=== PATIENT | female | born 1990 | race African-American/Black ===

== ENCOUNTER 2017-08-03 22:25 | Emergency (ER) | payer SELFPAY | END 2017-08-04 00:50 | disposition left against medical advice (07) | LOC: ERS 22:25 | DX: Z53.21 Procedure and treatment not carried out due to patient leaving prior to being seen by health care provider (principal) ==

== ENCOUNTER 2017-08-03 23:03 | Emergency (ER) | payer SELFPAY | END 2017-08-03 23:42 | disposition home or self-care (01) | LOC: SCSER 23:03 | DX: H69.81 Other specified disorders of Eustachian tube, right ear (principal); J02.9 Acute pharyngitis, unspecified; F17.210 Nicotine dependence, cigarettes, uncomplicated | CPT/HCPCS: 99283 ==

== ENCOUNTER 2017-11-28 11:22 | Emergency (ER) | payer SELFPAY ==
[2017-11-28] MEDS ORDERED: Mag-Al 1200 mg/1200 mg/30 ML UDCUP ONE (12:40)
[2017-11-28] MEDS ORDERED: Lidocaine 1% (PF) 30 ML VIAL ONE (12:40)
[2017-11-28] MEDS ORDERED: Lidocaine Viscous Sol 2% 15 ml UD Cup ONE (12:43)
== END 2017-11-28 12:53 | disposition home or self-care (01) ==
LOC: ERS 11:22
DX: K21.9 Gastro-esophageal reflux disease without esophagitis (principal); J02.9 Acute pharyngitis, unspecified; Z71.6 Tobacco abuse counseling; F17.210 Nicotine dependence, cigarettes, uncomplicated
CPT/HCPCS: 99406; J2001

== ENCOUNTER 2018-04-16 17:37 | Emergency (ER) | payer SELFPAY ==
[2018-04-16] MEDS ORDERED: Acetaminophen 325 MG TAB ONE (18:53)
[2018-04-16 19:10] LABS: #Basophils 0.1 thou/uL (0.0-0.2); #Lymphocytes 2.7 thou/uL (1.20-3.40); #Monocytes 0.5 thou/uL (0.11-0.59); #Neutrophils 5.9 thou/uL (1.40-6.50); %Eosinophils 0.4 % (0.0-10.0); %Monocytes 5.7 % (0.0-10.0); %Neutrophils 63.9 % (42.0-75.0); Hemoglobin 11.7 g/dL (12.0-16.0); Mean Corpuscular HGB CONC 35.1 g/dL (32.0-36.0); Mean Corpuscular Hemoglobin 27.8 pg (27.0-31.0); Mean Corpuscular Volume 79.2 fL (78.0-98.0); Mean Platelet Volume 10.9 fL (7.4-10.4); Platelet Count 170 thou/uL (130-400); RBC Distribution Width 14.5 % (11.5-14.5); White Blood Cell (WBC) Count 9.2 thou/uL (4.8-10.8)
[2018-04-16 19:32] LABS: ALT (SGPT) 12 U/L (8-55); AST (SGOT) 16 U/L (5-34); Albumin 3.9 g/dL (3.5-5.0); Alkaline Phosphatase 61 U/L (40-150); Anion Gap 11 mmol/L (10-20); BUN (Urea Nitrogen) 11 mg/dL (7.0-18.7); Bilirubin, Total 0.4 mg/dL (0.2-1.2); Calc. Creatinine Clearance 0 mL/min (70-130); Calcium 8.8 mg/dL (7.8-10.44); Carbon Dioxide 24 mmol/L (22-29); Chloride 107 mmol/L (98-107); Estimated GFR-MDRD Greater than 90; Globulin 3.5 g/dL (2.4-3.5); Glucose 92 mg/dL (70-105); Protein, Total 7.4 g/dL (6.0-8.3); Sodium 138 mmol/L (136-145)
--- NOTE | 2018-04-16 20:08 | ULT ---
LEFT LOWER EXTREMITY VENOUS DUPLEX EXAM: HISTORY: Left lower extremity pain. TECHNIQUE: Real-time color Doppler evaluation of the left lower extremity was performed from the groin to the nv lf. This includes evaluation of the common femoral, superficial femoral, profunda femoral, saphenous , popliteal, and posterior tibial veins. FINDINGS: This shows a patent deep venous system. There is normal compressibility and augmentation. IMPRESSION: No evidence of deep venous thrombosis of the left lower extremity. POS: [place]
--- NOTE | 2018-04-21 15:28 | EKG ---
Test Reason : Blood Pressure : / mmHG Vent. Rate : 059 BPM Atrial Rate : 059 BPM P-R Int : 172 ms QRS Dur : 078 ms QT Int : 412 ms P-R-T Axes : 051 004 019 degrees QTc Int : 407 ms Sinus bradycardia Confirmed by ARA CHAVARRIA M.D. ([id number]), commissioning editor FLORES ORTEGA ([id number]) on 04/21/2018 3:27:57 PM Referred By: Confirmed By:ARA CHAVARRIA M.D.
== END 2018-04-16 20:42 | disposition home or self-care (01) ==
LOC: ERS 17:37
DX: M79.652 Pain in left thigh (principal); D64.9 Anemia, unspecified; F17.210 Nicotine dependence, cigarettes, uncomplicated
CPT/HCPCS: 36415; 80053; 82550; 85025; 85379; 93005

== ENCOUNTER 2018-06-13 23:38 | Emergency (ER) | payer SELFPAY | END 2018-06-14 00:35 | disposition home or self-care (01) | LOC: ERS 23:38 | DX: B86 Scabies (principal); F17.210 Nicotine dependence, cigarettes, uncomplicated | CPT/HCPCS: 99282 ==

== ENCOUNTER 2019-01-30 12:26 | Emergency (ER) | payer SELFPAY | END 2019-01-30 14:00 | disposition home or self-care (01) | LOC: ERS 12:26 | DX: N61.0 Mastitis without abscess (principal); I10 Essential (primary) hypertension; F41.9 Anxiety disorder, unspecified; F17.210 Nicotine dependence, cigarettes, uncomplicated; Z79.899 Other long term (current) drug therapy | CPT/HCPCS: 99283 ==

== ENCOUNTER 2019-05-20 01:19 | Emergency (ER) | payer SELFPAY ==
[2019-05-20] MEDS ORDERED: Ondansetron ODT 4 MG TAB ONE (01:41)
[2019-05-20] MEDS ORDERED: Lidocaine Viscous Sol 2% 15 ml UD Cup ONE (01:41)
[2019-05-20] MEDS ORDERED: Mag-Al 1200 mg/1200 mg/30 ML UDCUP ONE (01:41)
[2019-05-20 02:01] LABS: Bacteria/HPF 1+ HPF (None Seen); Bilirubin Negative (Negative); Blood, Urine Negative (Negative); Clarity Clear (Clear); Glucose, Urine (Dipstick) Normal (Negative); Leukocyte 500 Leu/uL (Negative); Nitrite Negative (Negative); Protein, Urine (Dipstick) Negative (Neg-Trace); RBC/HPF None Seen HPF (0-3); Urobilinogen Normal mg/dL (Less than 2); WBC/HPF 0-3 HPF (0-3)
[2019-05-20 02:02] LABS: Pregnancy Test - Urine (BHCG) Negative (Negative); Pregu Control Background? CLEAR/WHITE (CLR/WHITE); Pregu Control Bar Appear? YES (CONTROL BAR); Specific Gravity 1.007 (1.002-1.036)
== END 2019-05-20 02:50 | disposition home or self-care (01) ==
LOC: ERS 01:19
DX: K21.9 Gastro-esophageal reflux disease without esophagitis (principal); F41.9 Anxiety disorder, unspecified; F17.210 Nicotine dependence, cigarettes, uncomplicated; I10 Essential (primary) hypertension; Z79.899 Other long term (current) drug therapy
CPT/HCPCS: 81003; 81015; 81025; 99284; Q0162

== ENCOUNTER 2019-06-15 21:09 | Emergency (ER) | payer SELFPAY ==
[2019-06-15 21:41] LABS: Bacteria/HPF None Seen HPF (None Seen); Bilirubin Negative (Negative); Blood, Urine Negative (Negative); Clarity Clear (Clear); Glucose, Urine (Dipstick) Normal (Negative); Leukocyte 75 Leu/uL (Negative); Nitrite Negative (Negative); Protein, Urine (Dipstick) Negative (Neg-Trace); RBC/HPF 0-3 HPF (0-3); Squamous Epithelial 0-3 HPF (0-3); Urobilinogen Normal mg/dL (Less than 2); WBC/HPF 0-3 HPF (0-3)
[2019-06-15 21:49] LABS: #Basophils 0.1 thou/uL (0.0-0.2); #Lymphocytes 2.6 thou/uL (1.20-3.40); #Monocytes 0.4 thou/uL (0.11-0.59); #Neutrophils 6.2 thou/uL (1.40-6.50); %Basophils 1.3 % (0.0-1.0); %Eosinophils 0.1 % (0.0-10.0); %Monocytes 4.7 % (0.0-10.0); %Neutrophils 65.8 % (42.0-75.0); Hemoglobin 11.6 g/dL (12.0-16.0); Mean Corpuscular HGB CONC 35.4 g/dL (32.0-36.0); Mean Corpuscular Hemoglobin 28.5 pg (27.0-31.0); Mean Corpuscular Volume 80.4 fL (78.0-98.0); Mean Platelet Volume 10.8 fL (7.4-10.4); Platelet Count 189 thou/uL (130-400); RBC Distribution Width 14.9 % (11.5-14.5); Red Blood Cell (RBC) Count 4.09 mill/uL (4.20-5.40); White Blood Cell (WBC) Count 9.4 thou/uL (4.8-10.8)
[2019-06-15] MEDS ORDERED: Acetaminophen 325 MG TAB ONE (22:18)
--- NOTE | 2019-06-15 23:27 | ULT ---
Obstetric sonogram transabdominal imaging with duplex evaluation HISTORY: Early . Pain. FINDINGS: Urinary bladder is incompletely distended. Uterus has a heterogeneous echotexture and is 11 .1 cm. Gestational sac within the endometrial cavity contains a yolk sac and pole. Heart motion at 116 bpm. Measurements correlate with 6 weeks 2 days gestational age. Estimated date of delivery 02/06/2020. No evidence of subchorionic hemorrhage. Minimal free fluid within the pelvis. Each ovary contains fol licles and demonstrates good color and spectral Doppler flow. IMPRESSION: Single early intrauterine gestation estimated gestational age 6 weeks 2 days. No evidence of complication.
== END 2019-06-15 23:36 | disposition home or self-care (01) ==
LOC: ERS 21:09
DX: O99.89 Other specified diseases and conditions complicating pregnancy, childbirth and the puerperium (principal); R10.30 Lower abdominal pain, unspecified; R19.7 Diarrhea, unspecified; O21.9 Vomiting of pregnancy, unspecified; O10.911 Unspecified pre-existing hypertension complicating pregnancy, first trimester; O99.611 Diseases of the digestive system complicating pregnancy, first trimester; K21.9 Gastro-esophageal reflux disease without esophagitis; O99.341 Other mental disorders complicating pregnancy, first trimester; F41.9 Anxiety disorder, unspecified; O99.331 Smoking (tobacco) complicating pregnancy, first trimester; F17.210 Nicotine dependence, cigarettes, uncomplicated; Z79.899 Other long term (current) drug therapy; Z3A.01 Less than 8 weeks gestation of pregnancy
CPT/HCPCS: 36415; 76856; 81003; 81015; 84702; 85025; 86900; 86901

== ENCOUNTER 2019-06-26 12:20 | Emergency (ER) | payer BC, SELFPAY ==
[2019-06-26 12:54] LABS: BHCG - Serum POSITIVE (NEGATIVE); Pregs Control Background? CLEAR/WHITE (CLR/WHITE); Pregs Control Bar Appear? YES (CONTROL BAR)
[2019-06-26 12:56] LABS: #Basophils 0.1 thou/uL (0.0-0.2); #Lymphocytes 2.1 thou/uL (1.20-3.40); #Monocytes 0.5 thou/uL (0.11-0.59); #Neutrophils 4.7 thou/uL (1.40-6.50); %Basophils 1.1 % (0.0-1.0); %Eosinophils 0.3 % (0.0-10.0); %Lymphocytes 28.4 % (21.0-51.0); %Monocytes 6.6 % (0.0-10.0); %Neutrophils 63.7 % (42.0-75.0); Hemoglobin 11.4 g/dL (12.0-16.0); Mean Corpuscular HGB CONC 35.9 g/dL (32.0-36.0); Mean Corpuscular Hemoglobin 29.1 pg (27.0-31.0); Mean Corpuscular Volume 81.2 fL (78.0-98.0); Mean Platelet Volume 10.1 fL (7.4-10.4); Platelet Count 197 thou/uL (130-400); RBC Distribution Width 15.1 % (11.5-14.5); Red Blood Cell (RBC) Count 3.91 mill/uL (4.20-5.40); White Blood Cell (WBC) Count 7.4 thou/uL (4.8-10.8)
[2019-06-26 13:17] LABS: ALT (SGPT) 14 U/L (8-55); AST (SGOT) 13 U/L (5-34); Albumin 3.7 g/dL (3.5-5.0); Alkaline Phosphatase 56 U/L (40-110); Anion Gap 11 mmol/L (10-20); BUN (Urea Nitrogen) 7 mg/dL (7.0-18.7); Bilirubin, Total 0.3 mg/dL (0.2-1.2); Calc. Creatinine Clearance 0 mL/min (70-130); Calcium 8.8 mg/dL (7.8-10.44); Carbon Dioxide 23 mmol/L (22-29); Chloride 104 mmol/L (98-107); Estimated GFR-MDRD Greater than 90; Globulin 3.3 g/dL (2.4-3.5); Glucose 104 mg/dL (70-105); Lipase 12 U/L (8-78); Potassium 3.5 mmol/L (3.5-5.1); Sodium 134 mmol/L (136-145)
--- NOTE | 2019-06-26 13:32 | ULT ---
ULTRASOUND PELVIC ULTRASOUND TRANSVAGINAL DOPPLER DUPLEX: DATE: 06/26/2019 HISTORY: 29-year-old female in first trimester with lower abdominal, pelvic pain TECHNIQUE: Transabdominal transducer and endovaginal transducer used to visualize intrapelvic contents with leung scale, color-flow, and spectral analysis. FINDINGS: Intrauterine gestational sac now has slightly irregular, mildly undulating margins. Its volume is now slightly large. Thin crescentic hypoechoic regions are questionable for minimal subchorionic hemorrhage. Yolk sac present. Embryonic pole crown-rump length 1.4 cm: 7 weeks 4 days. heart rate: 139 bpm. No free fluid in the cul-de-sac. Bilateral ovaries are normal in size and demonstrate blood flow. Questionable 2.5 cm hemorrhagic right corpus luteal cyst. IMPRESSION: 1) live first trimester intrauterine gestation estimated to be approximately 7 weeks 4 days gestation al age. 2) mild abnormality of the gestational sac. Possibility of threatened . Follow-up recommended .
== END 2019-06-26 13:40 | disposition home or self-care (01) ==
LOC: ERS 12:20
DX: O34.61 Maternal care for abnormality of vagina, first trimester (principal); N89.8 Other specified noninflammatory disorders of vagina; O99.89 Other specified diseases and conditions complicating pregnancy, childbirth and the puerperium; R10.30 Lower abdominal pain, unspecified; O10.911 Unspecified pre-existing hypertension complicating pregnancy, first trimester; O99.611 Diseases of the digestive system complicating pregnancy, first trimester; K21.9 Gastro-esophageal reflux disease without esophagitis; O99.341 Other mental disorders complicating pregnancy, first trimester; F41.9 Anxiety disorder, unspecified; O99.331 Smoking (tobacco) complicating pregnancy, first trimester; F17.210 Nicotine dependence, cigarettes, uncomplicated; Z3A.01 Less than 8 weeks gestation of pregnancy
CPT/HCPCS: 36415; 76856; 80053; 83690; 84702; 84703; 85025

== ENCOUNTER 2019-08-04 12:21 | Emergency (ER) | payer BC, OTHER | END 2019-08-04 13:11 | disposition home or self-care (01) | LOC: ERS 12:21 | DX: J30.2 Other seasonal allergic rhinitis (principal); M94.0 Chondrocostal junction syndrome [Tietze]; I10 Essential (primary) hypertension; K21.9 Gastro-esophageal reflux disease without esophagitis; F41.9 Anxiety disorder, unspecified | CPT/HCPCS: 99283 ==

== ENCOUNTER 2019-10-02 08:27 | Outpatient (CLI) | payer BC, OTHER ==
--- NOTE | 2019-10-02 11:15 | ULT ---
COMPLETE OB ULTRASOUND GREATER THAN 14 WEEKS: HISTORY: Anatomy. FINDINGS: Single viable intrauterine fetus is noted in breech presentation. The placenta is anterior and ja l. heart rate 146 b.p.m. Amniotic fluid within normal limits. Cervical length somewhat less than optimally seen but within normal limits. ANATOMY: Visualized brain, 4-chamber heart, 3-vessel cord, stomach, bladder, kidneys, and extremity aury ons were unremarkable. biometry: BPD 4.3 cm-19 weeks, 1 day Head circumference 18.1 cm-20 weeks, 4 days Abdominal circumference 16.4 cm-21 weeks, 3 days Femur length 3.3 cm-20 weeks 3 days IMPRESSION: Single viable intrauterine fetus 20 weeks 3 days, estimated date of delivery 02/04/2020. Estimated f etal weight 378 gm. POS: [facility]
== END 2019-10-02 08:28 | disposition home or self-care (01) ==
LOC: BICULT 08:27
PROVIDERS: ATTEND Family Medicine
DX: O09.892 Supervision of other high risk pregnancies, second trimester (principal); Z3A.20 20 weeks gestation of pregnancy
CPT/HCPCS: 76805; 87635; U0003

== ENCOUNTER 2019-10-10 11:39 | Emergency (ER) | payer BC, OTHER ==
[2019-10-10] MEDS ORDERED: Acetaminophen 500 MG TAB ONE (12:51)
[2019-10-10 14:20] LABS: Bacteria/HPF Rare-Few HPF (None Seen); Bilirubin Negative (Negative); Blood, Urine Negative (Negative); Clarity Clear (Clear); Glucose, Urine (Dipstick) Normal (Negative); Leukocyte 250 Leu/uL (Negative); Nitrite Negative (Negative); Protein, Urine (Dipstick) Negative (Neg-Trace); RBC/HPF 0-3 HPF (0-3); Urobilinogen Normal mg/dL (Less than 2)
[2019-10-11 11:57] LABS: SARS-CoV-2 MS2 Positive; SARS-CoV-2 N Gene Negative; SARS-CoV-2 S Gene Negative; SARS-CoV-2 orf1ab Negative
--- NOTE | 2019-10-13 15:31 | EKG ---
Test Reason : CHEST PAIN Blood Pressure : / mmHG Vent. Rate : 070 BPM Atrial Rate : 070 BPM P-R Int : 174 ms QRS Dur : 084 ms QT Int : 408 ms P-R-T Axes : 033 001 011 degrees QTc Int : 440 ms Normal sinus rhythm Cannot rule out Anterior infarct , age undetermined Abnormal ECG Confirmed by HARRISON HARRY, TY ([id number]), video effects editor ANEESH JOHNSON ([id number]) on 10/13/2019 3:30:54 PM Referred By: [facility] Confirmed By:TY TERRY MD
== END 2019-10-10 14:35 | disposition home or self-care (01) ==
LOC: ERS 11:39
DX: O23.42 Unspecified infection of urinary tract in pregnancy, second trimester (principal); O99.89 Other specified diseases and conditions complicating pregnancy, childbirth and the puerperium; M79.10 Myalgia, unspecified site; O10.912 Unspecified pre-existing hypertension complicating pregnancy, second trimester; O99.613 Diseases of the digestive system complicating pregnancy, third trimester; K21.9 Gastro-esophageal reflux disease without esophagitis; O99.342 Other mental disorders complicating pregnancy, second trimester; F41.9 Anxiety disorder, unspecified; Z3A.23 23 weeks gestation of pregnancy; Z79.899 Other long term (current) drug therapy
CPT/HCPCS: 81003; 81015; 87086; 87635; 93005; 94760; U0003

== ENCOUNTER 2020-01-13 12:35 | Day surgery (SDC) | payer BC, OTHER ==
[2020-01-13 13:22] VITALS: BP 119/83; TEMP 98; BMI 33.2
[2020-01-13] MEDS ORDERED: hydrALAZINE 20 MG/ML VIAL SLOW IVP PRN (13:50)
--- NOTE | 2020-01-13 13:54 | PDOC.LDHP ---
Labor and Delivery H&P Chief complaint: other (elevated blood pressure) HPI: 29 year-old female , EGA 37 0/6 weeks with gestational hypertension presents to L&D with complaints of high blood pressure that began last night. She started feeling "spacy" last night and could tell that her blood pressure was elevated. She continued to feel that way this morning, so she checked her blood pressure and noted a BP of 144/85. She checked it again an hour later and it went down to 138/94. However, an hour after that, it was elevated again, so her OB Dr. Denis told her to come get evaluated in the hospital. She has also had a mild headache with this, but believes this may be due to inadequate fluid intake. She ran out of her Procardia 3 days ago. She denies any chest pain, LE swelling, vision changes, vaginal bleeding, abnormal discharge, urinary sx's, or signs of membrane rupture. + FM. Current gestational age (weeks): 37 (37.0) Dating criteria: last menstrual period Grav: 3 Para: 2 (2001) OB History Details: #1: IOL w/ @ 35 WGA for pre-e #2: IOL w/ @ 36 WGA for pre-e Current complications: gestational hypertension, other (anemia) Abnormal US findings: No Current medications: pre- vitamins, iron, other (nifedipine PO QD) Previous surgical history: appendectomy, none (tonsillectomy & adenoidectomy) Allergies/Adverse Reactions: Allergies Allergy/AdvReac Type Severity Reaction Status Date / Time No Known Allergies Allergy Verified 01/13/20 13:09 Social history: none - Physical Exam Vital signs reviewed and normal: yes General: NAD Lungs: nonlabored breathing Abdomen: gravid Extremeties: no edema FHT: category 1, variability present [place] contractions every: none noted - Plan -: 29Yo @ 37 WGA presenting for evaluation for an elevated BP at home. Elevated BP in setting gHTN, r/o pre-e: - BPs all WNLs since arrival to L&D. No contractions on monitor. FHTs reassuring w/ variability & accels noted. Will get pre-e labs & give PO tylenol for REAL. Will encourage PO hydration. Addendum - Attending - Attending Attestation Date/Time: 01/13/20 [id number] I personally evaluated the patient and discussed the management with Dr. Blake. I agree with the History, Examination, Assessment and Plan documented above.
[2020-01-13] MEDS ORDERED: Acetaminophen 500 MG TAB PO SCH (14:00)
[2020-01-13 15:35] LABS: #Basophils 0.1 thou/uL (0.0-0.2); #Lymphocytes 1.9 thou/uL (1.20-3.40); #Monocytes 0.5 thou/uL (0.11-0.59); #Neutrophils 4.5 thou/uL (1.40-6.50); %Basophils 1.2 % (0.0-1.0); %Eosinophils 0.4 % (0.0-10.0); %Lymphocytes 26.6 % (21.0-51.0); %Monocytes 6.7 % (0.0-10.0); %Neutrophils 65.2 % (42.0-75.0); Hemoglobin 11.5 g/dL (12.0-16.0); Mean Corpuscular HGB CONC 34.5 g/dL (32.0-36.0); Mean Corpuscular Hemoglobin 28.6 pg (27.0-31.0); Mean Corpuscular Volume 83.1 fL (78.0-98.0); Platelet Count 122 thou/uL (130-400); RBC Distribution Width 15.2 % (11.5-14.5); Red Blood Cell (RBC) Count 4.02 mill/uL (4.20-5.40)
[2020-01-13 15:46] LABS: Anisocytosis SLIGHT = 6-15 cells (100X) (0-5/hpf); Large Platelets SLIGHT; MDiff Complete? YES; Platelet Morphology Comment Appears Decreased
[2020-01-13 15:47] LABS: ALT (SGPT) 9 U/L (8-55); AST (SGOT) 11 U/L (5-34); Albumin 2.9 g/dL (3.5-5.0); Alkaline Phosphatase 107 U/L (40-110); Anion Gap 14 mmol/L (10-20); BUN (Urea Nitrogen) 5 mg/dL (7.0-18.7); Bilirubin, Total 0.3 mg/dL (0.2-1.2); Calc. Creatinine Clearance 202 mL/min (70-130); Calcium 8.1 mg/dL (7.8-10.44); Carbon Dioxide 20 mmol/L (22-29); Chloride 105 mmol/L (98-107); Estimated GFR-MDRD Greater than 90; Globulin 3.3 g/dL (2.4-3.5); Glucose 76 mg/dL (70-105); Potassium 3.5 mmol/L (3.5-5.1); Protein, Total 6.2 g/dL (6.0-8.3); Sodium 135 mmol/L (136-145)
--- NOTE | 2020-01-13 16:11 | PDOC.BPN ---
<Carina Blake - Last Filed: 01/13/20 16:12> - Brief Progress Note Encounter Date: 01/13/20 Encounter Time: 16:00 29YO @ 37 WGA presenting for evaluation for an elevated BP at home. Elevated BP in setting gHTN, r/o pre-e: - BPs all WNLs since arrival to L&D. No contractions on monitor. FHTs reassuring w/ variability & accels noted. Pre-e labs WNLs w/ Plts 122, NL LFTs & Urine protein creatinine ratio of 0.115. No pre-e symptoms. Dispo: Will d/c home & send in refills of home BP meds. <Francisco Esparza - Last Filed: 01/13/20 17:36> Addendum - Attending - Attending Attestation Date/Time: 01/13/20 [id number] I personally evaluated the patient and discussed the management with Dr. Blake. I agree with the History, Examination, Assessment and Plan documented above.
== END 2020-01-13 15:25 | disposition home or self-care (01) ==
LOC: L&D/OP 12:35
PROVIDERS: ATTEND Family Medicine
DX: O13.3 Gestational [pregnancy-induced] hypertension without significant proteinuria, third trimester (principal); O99.013 Anemia complicating pregnancy, third trimester; D64.9 Anemia, unspecified; Z3A.37 37 weeks gestation of pregnancy; Z79.899 Other long term (current) drug therapy
CPT/HCPCS: 36415; 80053; 82570; 84156; 85025; 99283

== ENCOUNTER 2020-01-25 08:03 | Outpatient (CLI) | payer BC, OTHER ==
[2020-01-25 19:47] LABS: SARS-CoV-2 MS2 Positive; SARS-CoV-2 N Gene Negative; SARS-CoV-2 S Gene Negative; SARS-CoV-2 by NAA Not Detected (NotDetected); SARS-CoV-2 orf1ab Negative
== END 2020-01-25 08:04 | disposition home or self-care (01) ==
LOC: LABSCS 08:03
PROVIDERS: ATTEND Family Medicine
DX: Z20.828 Contact with and (suspected) exposure to other viral communicable diseases (principal)
CPT/HCPCS: 87635; U0003

== ENCOUNTER 2020-01-28 19:15 | Inpatient (IN) | payer BC, OTHER ==
[2020-01-28 20:18] VITALS: BMI 33.2
[2020-01-28] MEDS: Lactated Ringer's 1,000 ML IV SCH (20:48)
[2020-01-28] MEDS ORDERED: Butorphanol Tartrate 1 MG/ML VIAL SLOW IVP PRN (21:40)
[2020-01-28] MEDS ORDERED: hydrALAZINE 20 MG/ML VIAL SLOW IVP PRN (21:40)
[2020-01-28] MEDS ORDERED: Carboprost 250 MCG/ML AMP IM PRN (21:40)
[2020-01-28] MEDS ORDERED: Methylergonovine 0.2 MG/ML VIAL IM PRN (21:40)
[2020-01-28] MEDS ORDERED: Lidocaine 1% (PF) 30 ML VIAL SC PRN (21:40)
[2020-01-28] MEDS ORDERED: Promethazine HCl 25 MG/ML VIAL IM PRN (21:40)
[2020-01-28] MEDS ORDERED: Misoprostol 200 MCG TAB PR PRN (21:40)
[2020-01-28] MEDS ORDERED: Ibuprofen 800 MG TAB PO PRN (21:40)
[2020-01-28] MEDS ORDERED: Ondansetron PF 4 MG/2 ML Vial IVP PRN (21:40)
[2020-01-28] MEDS ORDERED: HYDROcodone/Acetaminophen 5/325 mg Tablet PO PRN (21:40)
[2020-01-28] MEDS ORDERED: NS / Oxytocin 40 units/1000ml 1,000 ML IV PRN (21:40)
[2020-01-28] MEDS ORDERED: Diphenoxylate HCl/Atropine Tablet PO PRN (21:40)
[2020-01-28] MEDS ORDERED: NS w/ Oxytocin 10 units 500 ML IV SCH ×2 (21:45)
[2020-01-28] MEDS: Misoprostol 100 MCG TAB PO SCH (21:53)
[2020-01-28] MEDS ORDERED: Penicillin G Potassium 5 MILL.UNITS in Sodium Chloride 0.9% 100 ML IVPB SCH (22:00)
[2020-01-28 22:13] LABS: Hemoglobin 12.3 g/dL (12.0-16.0); Mean Corpuscular HGB CONC 34.5 g/dL (32.0-36.0); Mean Corpuscular Hemoglobin 28.1 pg (27.0-31.0); Mean Corpuscular Volume 81.3 fL (78.0-98.0); Mean Platelet Volume 11.5 fL (7.4-10.4); Platelet Count 141 thou/uL (130-400); RBC Distribution Width 15.1 % (11.5-14.5); Red Blood Cell (RBC) Count 4.38 mill/uL (4.20-5.40)
[2020-01-28 22:46] LABS: HBSAg Index 0.14 S/CO (0-0.99); Hep B Surf Ag Non-Reactive S/CO (NonReactive); Syphilis Antibody Nonreactive (Nonreactive); Syphilis Antibody Index 0.05 S/CO (<1.00 Non-Reactive)
[2020-01-29] MEDS ORDERED: Penicillin G 2.5 MILL.units 2.5 MILL.UNITS in Premix Bag 1 BAG IVPB SCH (02:00)
[2020-01-29] MEDS: Misoprostol 100 MCG TAB PO SCH (03:46)
[2020-01-29] MEDS: Lactated Ringer's 1,000 ML IV SCH ×2 (05:04→10:30)
[2020-01-29] MEDS ORDERED: Fentanyl 4 mcg/Bup 0.1% Cadd 100 ML ONE (08:17)
[2020-01-29] MEDS ORDERED: Bupivacaine 0.25% HCL 30 ML VIAL ONE (08:37)
[2020-01-29] MEDS ORDERED: Lactated Ringer's 500 ML IV PRN ×2 (09:56→09:57)
[2020-01-29] MEDS ORDERED: Ondansetron PF 4 MG/2 ML Vial IVP PRN ×3 (09:56→15:24)
[2020-01-29] MEDS ORDERED: Acetaminophen 325 MG TAB PO PRN ×2 (09:56→09:57)
[2020-01-29] MEDS ORDERED: EPHEDRINE 25 MG/5 ML SYRINGE SLOW IVP PRN ×2 (09:56→09:57)
[2020-01-29] MEDS ORDERED: Naloxone HCl 0.4 mg/ml Vial IVP PRN ×4 (09:56→09:57)
[2020-01-29] MEDS ORDERED: Promethazine HCl 25 MG/ML VIAL IM PRN ×2 (09:56→09:57)
[2020-01-29] MEDS ORDERED: diphenhydrAMINE 50 MG/ML VIAL IVP PRN ×2 (09:56→09:57)
[2020-01-29] MEDS ORDERED: Fentanyl 4 mcg/Bupivacaine 0.1% Cassette 100 ML EPIDURAL SCH ×2 (10:00)
[2020-01-29] MEDS ORDERED: Communication Order-Pharmacy FS SCH ×2 (10:00)
[2020-01-29] MEDS ORDERED: Milk Of Magnesia 30 ML UDCUP PO PRN (15:24)
[2020-01-29] MEDS ORDERED: hydrALAZINE 20 MG/ML VIAL SLOW IVP PRN (15:24)
[2020-01-29] MEDS ORDERED: diphenhydrAMINE 25 MG CAP PO PRN (15:24)
[2020-01-29] MEDS ORDERED: Bisacodyl 10 MG SUPP PR PRN (15:24)
[2020-01-29] MEDS ORDERED: NS / Oxytocin 40 units/1000ml 1,000 ML IV SCH (15:24)
[2020-01-29] MEDS: Ferrous Sulfate 325 MG TAB PO SCH (17:18)
[2020-01-29] MEDS: HYDROcodone/Acetaminophen 5/325 mg Tablet PO PRN (17:19)
[2020-01-29] MEDS: Ibuprofen 800 MG TAB PO SCH (21:31)
[2020-01-29] MEDS: Docusate Calcium (SURFAK) 240 MG CAP PO SCH (21:31)
[2020-01-30] MEDS: Ibuprofen 800 MG TAB PO SCH ×3 (05:51→21:59)
[2020-01-30] MEDS: Ferrous Sulfate 325 MG TAB PO SCH ×2 (07:32→16:09)
[2020-01-30] MEDS: Misoprostol 100 MCG TAB PO SCH (07:33)
[2020-01-30] MEDS: Lactated Ringer's 1,000 ML IV SCH (07:36)
[2020-01-30] MEDS: Docusate Calcium (SURFAK) 240 MG CAP PO SCH ×2 (08:13→21:59)
[2020-01-30] MEDS: Prenatal Vitamin 1 TAB PO SCH (08:13)
[2020-01-30] MEDS: HYDROcodone/Acetaminophen 5/325 mg Tablet PO PRN ×3 (08:13→17:47)
[2020-01-30] MEDS ORDERED: Adacel (T-DAP) 0.5 ML SYRINGE IM ONE (09:00)
[2020-01-30] MEDS ORDERED: cloNIDine 0.1 MG TAB PO PRN (16:10)
[2020-01-31] MEDS: Ibuprofen 800 MG TAB PO SCH ×2 (05:18→13:22)
[2020-01-31] MEDS: HYDROcodone/Acetaminophen 5/325 mg Tablet PO PRN ×2 (07:45→13:22)
[2020-01-31] MEDS: Ferrous Sulfate 325 MG TAB PO SCH (08:04)
[2020-01-31] MEDS ORDERED: NIFEdipine XL 30 MG TAB PO SCH (09:00)
[2020-01-31] MEDS: Prenatal Vitamin 1 TAB PO SCH (09:18)
[2020-01-31] MEDS: Docusate Calcium (SURFAK) 240 MG CAP PO SCH (09:18)
[2020-01-31 12:24] VITALS: TEMP 98.5
[2020-01-31 13:34] VITALS: BP 120/73
== END 2020-01-31 14:45 | disposition home or self-care (01) | DRG 807 ==
LOC: L&D 19:39 → 3SW 01-29 15:28
PROVIDERS: ADMIT Family Medicine; ATTEND Family Medicine
PROC: 10E0XZZ Delivery of Products of Conception, External Approach (ICD-10-PCS; principal; 2020-01-29)
PROC: 3E033VJ Introduction of Other Hormone into Peripheral Vein, Percutaneous Approach (ICD-10-PCS; 2020-01-29)
PROC: 3E0P7VZ Introduction of Hormone into Female Reproductive, Via Natural or Artificial Opening (ICD-10-PCS; 2020-01-29)
PROC: 10907ZC Drainage of Amniotic Fluid, Therapeutic from Products of Conception, Via Natural or Artificial Opening (ICD-10-PCS; 2020-01-29)
DX: O10.02 Pre-existing essential hypertension complicating childbirth (principal); Z37.0 Single live birth; Z3A.39 39 weeks gestation of pregnancy; O69.81X0 Labor and delivery complicated by cord around neck, without compression, not applicable or unspecified; O76 Abnormality in fetal heart rate and rhythm complicating labor and delivery
CPT/HCPCS: 51702; 85027; 86780; 86850; 86900; 86901; 87340; 87635; J2590; S0020; U0003

== ENCOUNTER 2020-02-18 11:26 | Emergency (ER) | payer BC, OTHER ==
[~2020-02-18 11:26] MED LIST: Iopamidol-370 76% 500 ML 1 ML ONE
--- NOTE | 2020-02-18 12:00 | RAD ---
XR Chest 1 View Portable HISTORY: Chest pain COMPARISON: 02/04/2014 FINDINGS: The heart size is normal. The lungs are well expanded without focal areas of consolidation, pneumothorax or pleural effusions. IMPRESSION: No radiographic evidence of acute cardiopulmonary process.
[2020-02-18 12:54] LABS: #Basophils 0.1 thou/uL (0.0-0.2); #Monocytes 0.3 thou/uL (0.11-0.59); #Neutrophils 2.3 thou/uL (1.40-6.50); %Basophils 1.7 % (0.0-1.0); %Lymphocytes 41.8 % (21.0-51.0); %Monocytes 5.5 % (0.0-10.0); %Neutrophils 50.1 % (42.0-75.0); Hemoglobin 12.8 g/dL (12.0-16.0); Mean Corpuscular HGB CONC 33.8 g/dL (32.0-36.0); Mean Corpuscular Hemoglobin 28.1 pg (27.0-31.0); Mean Corpuscular Volume 83.1 fL (78.0-98.0); Mean Platelet Volume 11.6 fL (7.4-10.4); Platelet Count 215 thou/uL (130-400); Red Blood Cell (RBC) Count 4.54 mill/uL (4.20-5.40); White Blood Cell (WBC) Count 4.7 thou/uL (4.8-10.8)
[2020-02-18 13:18] LABS: BHCG - Serum Negative (NEGATIVE); Pregs Control Background? CLEAR/WHITE (CLR/WHITE); Pregs Control Bar Appear? YES (CONTROL BAR)
[2020-02-18 13:20] LABS: ALT (SGPT) 39 U/L (8-55); AST (SGOT) 27 U/L (5-34); Albumin 3.7 g/dL (3.5-5.0); Alkaline Phosphatase 81 U/L (40-110); Anion Gap 11 mmol/L (10-20); BUN (Urea Nitrogen) 8 mg/dL (7.0-18.7); Bilirubin, Total 0.3 mg/dL (0.2-1.2); CK (CPK) 44 U/L (29-168); Calc. Creatinine Clearance 0 mL/min (70-130); Calcium 8.6 mg/dL (7.8-10.44); Carbon Dioxide 28 mmol/L (22-29); Chloride 105 mmol/L (98-107); Estimated GFR-MDRD Greater than 90; Glucose 96 mg/dL (70-105); Lipase 15 U/L (8-78); Potassium 3.7 mmol/L (3.5-5.1); Protein, Total 6.7 g/dL (6.0-8.3); Sodium 140 mmol/L (136-145)
--- NOTE | 2020-02-18 13:42 | CT ---
CT PULMONARY ANGIOGRAM WITH IV CONTRAST AND 3-D POSTPROCESSING: HISTORY:Chest pain FINDINGS: There is good contrast opacification of the pulmonary arterial vasculature without filling defects to suggest pulmonary embolism. The thoracic aorta is well opacified without aneurysm or dissection. No pleural or pericardial effusions are seen. No pneumothoraces, focal areas of consolidation or lung nodules are noted. The bony structures are unremarkable. Upper abdominal tomograms demonstrate no significant abnormalities. IMPRESSION: No CT evidence of pulmonary embolism.
== END 2020-02-18 14:46 | disposition home or self-care (01) ==
LOC: ERS 11:26
DX: N61.0 Mastitis without abscess (principal); R07.89 Other chest pain; I10 Essential (primary) hypertension; K21.9 Gastro-esophageal reflux disease without esophagitis; F41.9 Anxiety disorder, unspecified; Z79.899 Other long term (current) drug therapy
CPT/HCPCS: 36415; 71045; 71275; 80053; 82550; 83690; 84484; 84703; 85025; 93005; Q9967

== ENCOUNTER 2020-06-03 01:48 | Emergency (ER) | payer BC, OTHER ==
[2020-06-03] MEDS ORDERED: Mag-Al 1200 mg/1200 mg/30 ML UDCUP ONE (02:16)
[2020-06-03] MEDS ORDERED: Lidocaine Viscous Sol 2% 15 ml UD Cup ONE (02:16)
[2020-06-03] MEDS ORDERED: Ondansetron ODT 4 MG TAB ONE (02:19)
--- NOTE | 2020-06-03 07:52 | RAD ---
EXAM: Single view of the chest HISTORY: Chest pain COMPARISON: 02/18/2020 FINDINGS: Single view of the chest shows a normal sized cardiomediastinal silhouette. There is no jose dence of consolidation, mass, or pleural effusion. No acute osseous abnormality. IMPRESSION: No evidence of acute cardiopulmonary disease
== END 2020-06-03 03:10 | disposition home or self-care (01) ==
LOC: ERS 01:48
DX: K21.00 Gastro-esophageal reflux disease with esophagitis, without bleeding (principal); R11.2 Nausea with vomiting, unspecified; I10 Essential (primary) hypertension; Z79.899 Other long term (current) drug therapy
CPT/HCPCS: 71045; 93005; Q0162

== ENCOUNTER 2020-06-25 07:49 | Emergency (ER) | payer OTHER | END 2020-06-25 08:29 | disposition home or self-care (01) | LOC: ERS 07:49 | DX: M79.622 Pain in left upper arm (principal); M54.6 Pain in thoracic spine; K21.9 Gastro-esophageal reflux disease without esophagitis; I10 Essential (primary) hypertension | CPT/HCPCS: 99283 ==

== ENCOUNTER 2020-09-19 13:00 | Emergency (ER) | payer OTHER ==
[2020-09-19] MEDS ORDERED: Ketorolac Tromethamine 30 MG/ML VIAL ONE (14:18)
[2020-09-19 14:42] LABS: Mean Corpuscular HGB CONC 35.2 g/dL (32.0-36.0); Mean Corpuscular Hemoglobin 29.6 pg (27.0-31.0); Mean Corpuscular Volume 84.1 fL (78.0-98.0); RBC Distribution Width 12.5 % (11.5-14.5); Red Blood Cell (RBC) Count 4.75 mill/uL (4.20-5.40); White Blood Cell (WBC) Count 3.8 thou/uL (4.8-10.8)
[2020-09-19 14:53] LABS: Large Platelets SLIGHT; MDiff Complete? YES; Mean Platelet Volume 11.3 fL (7.4-10.4); Platelet Count 115 thou/uL (130-400); Platelet Morphology Comment Appears Decreased; RBC Morphology Normal
[2020-09-19 14:59] LABS: ALT (SGPT) 23 U/L (8-55); AST (SGOT) 27 U/L (5-34); Albumin 3.5 g/dL (3.5-5.0); Alkaline Phosphatase 63 U/L (40-110); Anion Gap 13 mmol/L (10-20); BUN (Urea Nitrogen) 6 mg/dL (7.0-18.7); Bilirubin, Total 0.2 mg/dL (0.2-1.2); Calc. Creatinine Clearance 0 mL/min (70-130); Calcium 8.3 mg/dL (7.8-10.44); Carbon Dioxide 25 mmol/L (22-29); Chloride 104 mmol/L (98-107); Globulin 3.7 g/dL (2.4-3.5); Glucose 111 mg/dL (70-105); Potassium 3.5 mmol/L (3.5-5.1); Protein, Total 7.2 g/dL (6.0-8.3); Sodium 138 mmol/L (136-145)
[2020-09-19 15:37] LABS: BHCG - Serum Negative (NEGATIVE); Pregs Control Background? CLEAR/WHITE (CLR/WHITE); Pregs Control Bar Appear? YES (CONTROL BAR)
== END 2020-09-19 16:44 | disposition home or self-care (01) ==
LOC: ERS 13:00
DX: U07.1 COVID-19 (principal); I10 Essential (primary) hypertension; K21.9 Gastro-esophageal reflux disease without esophagitis
CPT/HCPCS: 36415; 71045; 71275; 80053; 84484; 84703; 85025; 85379; 93005; 96374; J1885

== ENCOUNTER 2020-10-27 14:58 | Emergency (ER) | payer OTHER ==
[2020-10-27] MEDS ORDERED: Meclizine HCl 25 MG TAB ONE (17:07)
[2020-10-27 17:27] LABS: BHCG - Serum Negative (NEGATIVE); Pregs Control Background? CLEAR/WHITE (CLR/WHITE); Pregs Control Bar Appear? YES (CONTROL BAR)
[2020-10-27 17:35] LABS: #Basophils 0.1 thou/uL (0.0-0.2); #Lymphocytes 2.2 thou/uL (1.20-3.40); #Monocytes 0.4 thou/uL (0.11-0.59); #Neutrophils 3.1 thou/uL (1.40-6.50); %Eosinophils 0.4 % (0.0-10.0); %Lymphocytes 37.6 % (21.0-51.0); %Monocytes 7.6 % (0.0-10.0); %Neutrophils 52.4 % (42.0-75.0); ALT (SGPT) 15 U/L (8-55); AST (SGOT) 15 U/L (5-34); Albumin 3.9 g/dL (3.5-5.0); Alkaline Phosphatase 59 U/L (40-110); Anion Gap 12 mmol/L (10-20); BUN (Urea Nitrogen) 13 mg/dL (7.0-18.7); Bilirubin, Total 0.3 mg/dL (0.2-1.2); CK (CPK) 107 U/L (29-168); Calc. Creatinine Clearance 0 mL/min (70-130); Calcium 8.8 mg/dL (7.8-10.44); Carbon Dioxide 22 mmol/L (22-29); Chloride 105 mmol/L (98-107); Globulin 3.4 g/dL (2.4-3.5); Glucose 93 mg/dL (70-105); Hemoglobin 12.4 g/dL (12.0-16.0); Mean Corpuscular HGB CONC 36.2 g/dL (32.0-36.0); Mean Corpuscular Hemoglobin 30.7 pg (27.0-31.0); Mean Corpuscular Volume 84.9 fL (78.0-98.0); Mean Platelet Volume 10.4 fL (7.4-10.4); Platelet Count 214 thou/uL (130-400); Potassium 3.7 mmol/L (3.5-5.1); Protein, Total 7.3 g/dL (6.0-8.3); RBC Distribution Width 13.3 % (11.5-14.5); Red Blood Cell (RBC) Count 4.03 mill/uL (4.20-5.40); Sodium 135 mmol/L (136-145); White Blood Cell (WBC) Count 5.8 thou/uL (4.8-10.8)
== END 2020-10-27 18:18 | disposition home or self-care (01) ==
LOC: ERS 14:58
DX: R42 Dizziness and giddiness (principal); I10 Essential (primary) hypertension; K21.9 Gastro-esophageal reflux disease without esophagitis
CPT/HCPCS: 36415; 80053; 82550; 84703; 85025; 93005

== ENCOUNTER 2021-01-14 00:16 | Emergency (ER) | payer OTHER ==
[2021-01-14] MEDS ORDERED: Ketorolac Tromethamine 30 MG/ML VIAL ONE (02:44)
== END 2021-01-14 04:02 | disposition home or self-care (01) ==
LOC: ERS 00:16
DX: M25.512 Pain in left shoulder (principal); M54.6 Pain in thoracic spine; I10 Essential (primary) hypertension; K21.9 Gastro-esophageal reflux disease without esophagitis; Z79.899 Other long term (current) drug therapy
CPT/HCPCS: 93005; 96372; J1885

== ENCOUNTER 2021-02-14 12:48 | Emergency (ER) | payer OTHER ==
[2021-02-14 13:32] LABS: #Basophils 0.1 thou/uL (0.0-0.2); #Monocytes 0.5 thou/uL (0.11-0.59); #Neutrophils 2.5 thou/uL (1.40-6.50); %Basophils 1.6 % (0.0-1.0); %Eosinophils 0.8 % (0.0-10.0); %Lymphocytes 39.8 % (21.0-51.0); %Monocytes 8.9 % (0.0-10.0); Hemoglobin 11.8 g/dL (12.0-16.0); Mean Corpuscular HGB CONC 34.6 g/dL (32.0-36.0); Mean Corpuscular Hemoglobin 25.6 pg (27.0-31.0); Mean Corpuscular Volume 73.9 fL (78.0-98.0); Mean Platelet Volume 8.7 fL (7.4-10.4); Platelet Count 198 thou/uL (130-400); RBC Distribution Width 16.2 % (11.5-14.5); Red Blood Cell (RBC) Count 4.61 mill/uL (4.20-5.40); White Blood Cell (WBC) Count 5.1 thou/uL (4.8-10.8)
[2021-02-14 13:38] LABS: BHCG - Serum Negative (NEGATIVE); Pregs Control Background? CLEAR/WHITE (CLR/WHITE); Pregs Control Bar Appear? YES (CONTROL BAR)
[2021-02-14 13:47] LABS: ALT (SGPT) 15 U/L (8-55); AST (SGOT) 13 U/L (5-34); Alkaline Phosphatase 75 U/L (40-110); Anion Gap 11 mmol/L (10-20); BUN (Urea Nitrogen) 10 mg/dL (7.0-18.7); Bilirubin, Total 0.3 mg/dL (0.2-1.2); Calc. Creatinine Clearance 0 mL/min (70-130); Calcium 9.2 mg/dL (7.8-10.44); Carbon Dioxide 26 mmol/L (22-29); Chloride 102 mmol/L (98-107); Globulin 3.6 g/dL (2.4-3.5); Glucose 94 mg/dL (70-105); Lipase 16 U/L (8-78); Potassium 4.1 mmol/L (3.5-5.1); Protein, Total 7.6 g/dL (6.0-8.3); Sodium 135 mmol/L (136-145)
[2021-02-14 13:56] LABS: MDiff Complete? YES; Microcytosis SLIGHT = 6-15 cells (100X) (0-5/hpf); Platelet Morphology Comment Appears Adequate; Polychromasia SLIGHT = 2-3 cells (100X) (0-2/hpf); Target Cells SLIGHT = 2-5 cells (100X) (0-1/hpf)
[2021-02-14 15:09] LABS: Bilirubin Negative (Negative); Blood, Urine Negative (Negative); Clarity Clear (Clear); Glucose, Urine (Dipstick) Normal (Negative); Ketone, Urine Negative (Negative); Leukocyte Negative Leu/uL (Negative); Nitrite Negative (Negative); Protein, Urine (Dipstick) Negative (Neg-Trace); Specific Gravity, Urine 1.005 (1.002-1.036); Urobilinogen Normal mg/dL (Less than 2); pH, Urine 6.5 (5.0-9.0)
== END 2021-02-14 15:48 | disposition home or self-care (01) ==
LOC: ERS 12:48
DX: R10.30 Lower abdominal pain, unspecified (principal); I10 Essential (primary) hypertension; K21.9 Gastro-esophageal reflux disease without esophagitis; Z79.899 Other long term (current) drug therapy
CPT/HCPCS: 80053; 81003; 83690; 84703; 85025; 99284

== ENCOUNTER 2021-05-22 07:59 | Outpatient (CLI) | payer OTHER | END 2021-05-22 08:00 | disposition home or self-care (01) | LOC: BICMAMMO 07:59 | PROVIDERS: ATTEND Nurse Practitioner Women's Health | DX: Z12.31 Encounter for screening mammogram for malignant neoplasm of breast (principal); Z80.3 Family history of malignant neoplasm of breast | CPT/HCPCS: 77067 ==

== ENCOUNTER 2021-08-01 16:57 | Emergency (ER) | payer BC, OTHER ==
[2021-08-01 17:24] LABS: #Basophils 0.1 thou/uL (0.0-0.2); #Lymphocytes 2.9 thou/uL (1.20-3.40); #Monocytes 0.4 thou/uL (0.11-0.59); %Eosinophils 0.6 % (0.0-10.0); %Lymphocytes 38.7 % (21.0-51.0); %Monocytes 5.9 % (0.0-10.0); %Neutrophils 53.7 % (42.0-75.0); Hemoglobin 12.2 g/dL (12.0-16.0); Mean Corpuscular HGB CONC 35.2 g/dL (32.0-36.0); Mean Corpuscular Volume 79.3 fL (78.0-98.0); Mean Platelet Volume 10.7 fL (7.4-10.4); Platelet Count 205 thou/uL (130-400); RBC Distribution Width 17.3 % (11.5-14.5); Red Blood Cell (RBC) Count 4.38 mill/uL (4.20-5.40); White Blood Cell (WBC) Count 7.4 thou/uL (4.8-10.8)
[2021-08-01 17:33] LABS: BHCG - Serum Negative (NEGATIVE); Pregs Control Background? CLEAR/WHITE (CLR/WHITE); Pregs Control Bar Appear? YES (CONTROL BAR)
[2021-08-01 17:45] LABS: ALT (SGPT) 17 U/L (8-55); AST (SGOT) 18 U/L (5-34); Albumin 4.1 g/dL (3.5-5.0); Alkaline Phosphatase 66 U/L (40-110); Anion Gap 13 mmol/L (10-20); BUN (Urea Nitrogen) 11 mg/dL (7.0-18.7); Bilirubin, Total 0.3 mg/dL (0.2-1.2); Calc. Creatinine Clearance 0 mL/min (70-130); Calcium 8.6 mg/dL (7.8-10.44); Carbon Dioxide 25 mmol/L (22-29); Chloride 103 mmol/L (98-107); Globulin 3.6 g/dL (2.4-3.5); Glucose 103 mg/dL (70-105); Potassium 3.5 mmol/L (3.5-5.1); Protein, Total 7.7 g/dL (6.0-8.3); Sodium 137 mmol/L (136-145)
[2021-08-01 20:30] LABS: Bilirubin Negative (Negative); Blood, Urine Negative (Negative); Clarity Turbid (Clear); Glucose, Urine (Dipstick) Normal (Negative); Ketone, Urine Negative (Negative); Leukocyte 500 Leu/uL (Negative); Nitrite Negative (Negative); Protein, Urine (Dipstick) Negative (Neg-Trace); RBC/HPF 0-3 HPF (0-3); Specific Gravity, Urine 1.018 (1.002-1.036); Urobilinogen Normal mg/dL (Less than 2)
[2021-08-01 20:38] LABS: Bacteria/HPF 2+ HPF (None Seen)
[2021-08-01] MEDS ORDERED: Ketorolac Tromethamine 30 MG/ML VIAL ONE (21:53)
== END 2021-08-01 22:41 | disposition home or self-care (01) ==
LOC: ERS 16:57
DX: N39.0 Urinary tract infection, site not specified (principal); Z79.899 Other long term (current) drug therapy; I10 Essential (primary) hypertension; K21.9 Gastro-esophageal reflux disease without esophagitis
CPT/HCPCS: 36415; 80053; 81003; 81015; 83690; 84703; 85025; 87077; 87086; 96372; 99284; J1885

== ENCOUNTER 2022-05-26 13:13 | Outpatient (CLI) | payer BC, OTHER | END 2022-05-26 13:14 | disposition home or self-care (01) | LOC: SCSMRI 13:13 | PROVIDERS: ATTEND Family Medicine Sports Medicine | DX: M25.562 Pain in left knee (principal); R60.0 Localized edema; M22.2X2 Patellofemoral disorders, left knee ==

== ENCOUNTER 2022-08-25 19:41 | Emergency (ER) | payer BC, OTHER ==
[2022-08-25 20:25] LABS: #Basophils 0.1 thou/uL (0.0-0.2); #Lymphocytes 2.8 thou/uL (1.20-3.40); #Monocytes 0.5 thou/uL (0.11-0.59); #Neutrophils 4.5 thou/uL (1.40-6.50); %Basophils 0.9 % (0.0-1.0); %Eosinophils 0.5 % (0.0-10.0); %Lymphocytes 35.6 % (21.0-51.0); %Monocytes 5.8 % (0.0-10.0); %Neutrophils 57.2 % (42.0-75.0); Hemoglobin 11.8 g/dL (12.0-16.0); Mean Corpuscular HGB CONC 35.5 g/dL (32.0-36.0); Mean Corpuscular Hemoglobin 28.8 pg (27.0-31.0); Mean Corpuscular Volume 81.2 fl (78.0-98.0); Mean Platelet Volume 11.1 fL (7.4-10.4); Platelet Count 206 10x3/uL (130-400); White Blood Cell (WBC) Count 7.9 10x3/uL (4.8-10.8)
[2022-08-25 20:38] LABS: BHCG - Serum Negative (NEGATIVE); Pregs Control Background? CLEAR/WHITE (CLR/WHITE); Pregs Control Bar Appear? YES (CONTROL BAR)
[2022-08-25 20:45] LABS: ALT (SGPT) 13 U/L (8-55); AST (SGOT) 13 U/L (5-34); Albumin 4.2 g/dL (3.5-5.0); Alkaline Phosphatase 63 U/L (40-110); Anion Gap 12 mmol/L (10-20); BUN (Urea Nitrogen) 10 mg/dL (7.0-18.7); Bilirubin, Total Less than 0.2 mg/dL (0.2-1.2); Calc. Creatinine Clearance 0 mL/min (70-130); Calcium 8.8 mg/dL (7.8-10.44); Carbon Dioxide 25 mmol/L (22-29); Chloride 104 mmol/L (98-107); Estimated GFR 98; Globulin 3.4 g/dL (2.4-3.5); Glucose 105 mg/dL (70-105); Lipase 25 U/L (8-78); Potassium 3.4 mmol/L (3.5-5.1); Protein, Total 7.6 g/dL (6.0-8.3); Sodium 138 mmol/L (136-145)
[2022-08-25] MEDS ORDERED: Mag-Al 1200 mg/1200 mg/30 ML UDCUP ONE (20:48)
[2022-08-25] MEDS ORDERED: Ondansetron ODT 4 MG TAB ONE (20:48)
[2022-08-25] MEDS ORDERED: Lidocaine Viscous Sol 2% 15 ml UD Cup ONE (20:48)
[2022-08-25 21:11] LABS: Bacteria/HPF 2+ HPF (None Seen); Bilirubin Negative (Negative); Blood, Urine Trace (Negative); Clarity Clear (Clear); Glucose, Urine (Dipstick) Normal (Negative); Ketone, Urine Negative (Negative); Leukocyte 250 Leu/uL (Negative); Mucous/LPF Rare LPF (<2+); Nitrite Negative (Negative); Protein, Urine (Dipstick) Negative (Neg-Trace); RBC/HPF 0-3 HPF (0-3); Specific Gravity, Urine 1.016 (1.002-1.036); Urobilinogen Normal mg/dL (Less than 2)
== END 2022-08-25 22:06 | disposition home or self-care (01) ==
LOC: ERS 19:41
DX: N39.0 Urinary tract infection, site not specified (principal); K29.70 Gastritis, unspecified, without bleeding
CPT/HCPCS: 36415; 80053; 81003; 81015; 83690; 84703; 85025; 99283; Q0162

== ENCOUNTER 2022-10-27 13:01 | Outpatient (CLI) | payer OTHER | END 2022-10-27 13:02 | disposition home or self-care (01) | LOC: ULT 13:01 | PROVIDERS: ATTEND Internal Medicine | DX: R10.2 Pelvic and perineal pain (principal) | CPT/HCPCS: 76856; 93976 ==

== ENCOUNTER 2022-11-20 23:46 | Emergency (ER) | payer BC, OTHER ==
[2022-11-21] MEDS ORDERED: Ondansetron PF 4 MG/2 ML Vial ONE (00:12)
[2022-11-21] MEDS ORDERED: Aspirin Chewable 81 MG TAB ONE (00:28)
[2022-11-21 00:32] LABS: #Eosinphils 0.1 thou/uL (0.0-0.7); #Monocytes 0.3 thou/uL (0.11-0.59); #Neutrophils 3.5 thou/uL (1.40-6.50); %Basophils 0.4 % (0.0-1.0); %Eosinophils 0.7 % (0.0-10.0); %Lymphocytes 47.8 % (21.0-51.0); %Monocytes 4.2 % (0.0-10.0); %Neutrophils 46.8 % (42.0-75.0); Hemoglobin 12.6 g/dL (12.0-16.0); Mean Corpuscular HGB CONC 34.3 g/dL (32.0-36.0); Mean Corpuscular Hemoglobin 26.6 pg (27.0-31.0); Mean Corpuscular Volume 77.6 fl (78.0-98.0); Mean Platelet Volume 12.6 fL (7.4-10.4); Platelet Count 233 10x3/uL (130-400); RBC Distribution Width 16.1 % (11.5-14.5); Red Blood Cell (RBC) Count 4.73 mill/uL (4.20-5.40); White Blood Cell (WBC) Count 7.4 10x3/uL (4.8-10.8)
[2022-11-21 01:56] LABS: ALT (SGPT) 19 U/L (8-55); AST (SGOT) 18 U/L (5-34); Albumin 4.5 g/dL (3.5-5.0); Alkaline Phosphatase 73 U/L (40-110); Anion Gap 16 mmol/L (10-20); BUN (Urea Nitrogen) 14 mg/dL (7.0-18.7); Bilirubin, Total 0.2 mg/dL (0.2-1.2); CK (CPK) 152 U/L (29-168); Calc. Creatinine Clearance 0 mL/min (70-130); Calcium 9.2 mg/dL (7.8-10.44); Carbon Dioxide 23 mmol/L (22-29); Chloride 105 mmol/L (98-107); Estimated GFR 89; Glucose 97 mg/dL (70-105); Potassium 3.7 mmol/L (3.5-5.1); Protein, Total 8.5 g/dL (6.0-8.3); Sodium 140 mmol/L (136-145)
== END 2022-11-21 02:10 | disposition left against medical advice (07) ==
LOC: ERS 23:46
DX: R07.89 Other chest pain (principal); I10 Essential (primary) hypertension; K21.9 Gastro-esophageal reflux disease without esophagitis
CPT/HCPCS: 71045; 80053; 82550; 83690; 84484; 85025; 93005; 96361; 96374; J2405

== ENCOUNTER 2023-03-27 22:16 | Emergency (ER) | payer BC, OTHER ==
[2023-03-27 23:34] LABS: #Monocytes 0.4 thou/uL (0.11-0.59); #Neutrophils 3.8 thou/uL (1.40-6.50); %Basophils 0.5 % (0.0-1.0); %Eosinophils 0.3 % (0.0-10.0); %Lymphocytes 31.2 % (21.0-51.0); %Monocytes 5.7 % (0.0-10.0); Hematocrit 33.3 % (36.0-47.0); Hemoglobin 11.3 g/dL (12.0-16.0); Mean Corpuscular HGB CONC 33.9 g/dL (32.0-36.0); Mean Corpuscular Hemoglobin 25.1 pg (27.0-31.0); Mean Corpuscular Volume 73.8 fl (78.0-98.0); Mean Platelet Volume 11.8 fL (7.4-10.4); Platelet Count 276 10x3/uL (130-400); RBC Distribution Width 15.9 % (11.5-14.5); Red Blood Cell (RBC) Count 4.51 mill/uL (4.20-5.40); White Blood Cell (WBC) Count 6.1 10x3/uL (4.8-10.8)
[2023-03-27 23:48] LABS: BHCG - Serum Negative (NEGATIVE); Pregs Control Background? CLEAR/WHITE (CLR/WHITE); Pregs Control Bar Appear? YES (CONTROL BAR)
[2023-03-27] MEDS ORDERED: Mag-Al 1200 mg/1200 mg/30 ML UDCUP ONE (23:48)
[2023-03-27] MEDS ORDERED: Famotidine/PF 20 mg/2ml Vial ONE (23:49)
[2023-03-27 23:57] LABS: ALT (SGPT) 23 U/L (8-55); AST (SGOT) 36 U/L (5-34); Albumin 4.2 g/dL (3.5-5.0); Alkaline Phosphatase 70 U/L (40-110); Anion Gap 15 mmol/L (10-20); BUN (Urea Nitrogen) 11 mg/dL (7.0-18.7); Bilirubin, Total 0.2 mg/dL (0.2-1.2); Calc. Creatinine Clearance 0 mL/min (70-130); Calcium 9.1 mg/dL (7.8-10.44); Carbon Dioxide 23 mmol/L (22-29); Chloride 105 mmol/L (98-107); Estimated GFR 101; Globulin 4.2 g/dL (2.4-3.5); Glucose 106 mg/dL (70-105); Magnesium 2.7 mg/dL (1.6-2.6); Potassium 3.6 mmol/L (3.5-5.1); Protein, Total 8.4 g/dL (6.0-8.3); Sodium 139 mmol/L (136-145)
[2023-03-27] MEDS ORDERED: Lidocaine 2% Viscous 100 ML BOTTLE FS SCH (23:59)
[2023-03-28] LABS: Troponin I Less than 0.010 ng/mL (< 0.028)
[2023-03-28 00:02] LABS: CellaVision Operator ID LAB.JMM; Hypochromia SLIGHT = 6-15 cells HPF (0-5); Macrocytosis SLIGHT = 6-15 cells HPF (0-5); Platelet Adequacy Comment Platelets Normal; Polychromasia SLIGHT = 2-3 cells HPF (0-2)
== END 2023-03-28 01:10 | disposition home or self-care (01) ==
LOC: ERS 22:16
DX: K27.9 Peptic ulcer, site unspecified, unspecified as acute or chronic, without hemorrhage or perforation (principal); I10 Essential (primary) hypertension
CPT/HCPCS: 71045; 80053; 83735; 84484; 84703; 85025; 93005; 96374; S0028

== ENCOUNTER 2023-06-19 23:35 | Emergency (ER) | payer OTHER ==
[2023-06-20] MEDS ORDERED: Ketorolac Tromethamine 30 MG (1 mL) VIAL ONE (00:10)
== END 2023-06-20 00:30 | disposition home or self-care (01) ==
LOC: ERS 23:35
DX: J01.90 Acute sinusitis, unspecified (principal); I10 Essential (primary) hypertension
CPT/HCPCS: 96372; 99283; J1885

== ENCOUNTER 2023-06-21 18:37 | Emergency (ER) | payer OTHER ==
[2023-06-21 19:40] LABS: #Monocytes 0.5 thou/uL (0.11-0.59); #Neutrophils 5.7 thou/uL (1.40-6.50); %Basophils 0.3 % (0.0-1.0); %Eosinophils 0.4 % (0.0-10.0); %Lymphocytes 33.4 % (21.0-51.0); %Monocytes 5.4 % (0.0-10.0); %Neutrophils 60.3 % (42.0-75.0); Hematocrit 35.9 % (36.0-47.0); Hemoglobin 12.2 g/dL (12.0-16.0); Mean Corpuscular Hemoglobin 25.3 pg (27.0-31.0); Mean Corpuscular Volume 74.3 fl (78.0-98.0); Mean Platelet Volume 11.9 fL (7.4-10.4); Platelet Count 280 10x3/uL (130-400); RBC Distribution Width 18.5 % (11.5-14.5); Red Blood Cell (RBC) Count 4.83 mill/uL (4.20-5.40); White Blood Cell (WBC) Count 9.4 10x3/uL (4.8-10.8)
[2023-06-21 20:02] LABS: Troponin I Less than 0.010 ng/mL (< 0.028)
[2023-06-21 20:07] LABS: ALT (SGPT) 39 U/L (8-55); AST (SGOT) 38 U/L (5-34); Albumin 4.3 g/dL (3.5-5.0); Alkaline Phosphatase 82 U/L (40-110); Anion Gap 14 mmol/L (10-20); BUN (Urea Nitrogen) 12 mg/dL (7.0-18.7); Bilirubin, Total 0.2 mg/dL (0.2-1.2); Calc. Creatinine Clearance 0 mL/min (70-130); Calcium 8.8 mg/dL (7.8-10.44); Carbon Dioxide 24 mmol/L (22-29); Chloride 104 mmol/L (98-107); Estimated GFR 66; Globulin 4.1 g/dL (2.4-3.5); Glucose 121 mg/dL (70-105); Potassium 3.7 mmol/L (3.5-5.1); Protein, Total 8.4 g/dL (6.0-8.3); Sodium 138 mmol/L (136-145)
[2023-06-21 20:08] LABS: Anisocytosis SLIGHT = 6-15 cells HPF (0-5); CellaVision Operator ID LAB.KB; Microcytosis SLIGHT = 6-15 cells HPF (0-5); Platelet Adequacy Comment Platelets Normal; Polychromasia SLIGHT = 2-3 cells HPF (0-2); Target Cells SLIGHT = 2-5 cells HPF (0-1)
[2023-06-21] MEDS ORDERED: Amoxicillin/Potassium Clav 875 MG TAB ONE (20:43)
== END 2023-06-21 21:00 | disposition home or self-care (01) ==
LOC: ERS 18:37
DX: J01.90 Acute sinusitis, unspecified (principal); I10 Essential (primary) hypertension; Z55.6 Problems related to health literacy; Z79.899 Other long term (current) drug therapy
CPT/HCPCS: 36415; 71045; 80053; 84484; 85025; 93005

== ENCOUNTER 2023-09-23 12:05 | Outpatient (CLI) | payer OTHER | END 2023-09-23 12:06 | disposition home or self-care (01) | LOC: RAD 12:05 | PROVIDERS: ATTEND Internal Medicine | DX: M54.2 Cervicalgia (principal); M48.8X2 Other specified spondylopathies, cervical region | CPT/HCPCS: 72040 ==

== ENCOUNTER 2024-12-13 07:37 | Outpatient (CLI) | payer BC, OTHER | END 2024-12-13 07:38 | disposition home or self-care (01) | LOC: NM 07:37 | PROVIDERS: ATTEND Internal Medicine | DX: K21.00 Gastro-esophageal reflux disease with esophagitis, without bleeding (principal); R11.2 Nausea with vomiting, unspecified; K30 Functional dyspepsia | CPT/HCPCS: 78264; A9541 ==

== ENCOUNTER 2025-01-03 10:03 | Emergency (ER) | payer OTHER ==
[2025-01-03] MEDS ORDERED: Ondansetron PF 4 MG/2 ML Vial ONE (11:22)
[2025-01-03 11:44] LABS: Pregnancy Test - Urine (BHCG) Negative (Negative); Pregu Control Background? CLEAR/WHITE (CLR/WHITE); Pregu Control Bar Appear? YES (CONTROL BAR)
[2025-01-03 11:45] LABS: Bacteria/HPF None Seen HPF (None Seen); CAUTI Indications for Culture Dysuria,urgency,freq; Glucose, Urine (Dipstick) Normal (Negative); Leukocyte Negative Leu/uL (Negative); Protein, Urine (Dipstick) Negative (Neg-Trace); RBC/HPF 0-3 HPF (0-3); Specific Gravity, Urine 1.020 (1.002-1.036); WBC/HPF 0-3 HPF (0-3)
[2025-01-03 11:46] LABS: Urine Culture Reflex No No
[2025-01-03 12:01] LABS: ALT (SGPT) 39 U/L (Less than 34); AST (SGOT) 30 U/L (11-34); Albumin 4.1 g/dL (3.1-4.5); Alkaline Phosphatase 81 U/L (40-110); Anion Gap 11 mmol/L (10-20); BUN (Urea Nitrogen) 8 mg/dL (7.0-18.7); Bilirubin, Total 0.2 mg/dL (0.3-1.2); Calc. Creatinine Clearance 0 mL/min (70-130); Calcium 8.8 mg/dL (7.8-10.44); Carbon Dioxide 27 mmol/L (22-29); Chloride 105 mmol/L (98-107); Globulin 3.3 g/dL (2.4-3.5); Glucose 111 mg/dL (70-105); Lipase 20 U/L (8-78); Magnesium 2.2 mg/dL (1.6-2.6); Potassium 3.8 mmol/L (3.5-5.1); Sodium 139 mmol/L (136-145)
[2025-01-03 12:04] LABS: #Basophils Less than 0.03 10x3/uL (0.0-0.2); #Eosinophils 0.03 10x3/uL (0.0-0.7); #Monocytes 0.34 10x3/uL (0.11-0.59); #Neutrophils 2.86 10x3/uL (1.40-6.50); %Basophils 0.4 % (0.0-1.0); %Eosinophils 0.5 % (0.0-10.0); %Lymphocytes 42.8 % (21.0-51.0); %Monocytes 6.0 % (0.0-10.0); %Neutrophils 50.1 % (42.0-75.0); Hematocrit 33.8 % (36.0-47.0); Hemoglobin 11.3 g/dL (12.0-16.0); Mean Corpuscular Hemoglobin 25.0 pg (27.0-31.0); Mean Corpuscular Volume 74.8 fL (78.0-98.0); Platelet Count 243 10x3/uL (130-400); Red Blood Cell (RBC) Count 4.52 mill/uL (4.20-5.40); White Blood Cell (WBC) Count 5.70 10x3/uL (4.8-10.8)
[2025-01-03 12:57] LABS: Anisocytosis MODERATE=16-30 cells HPF (0-5); Macrocytosis SLIGHT = 6-15 cells HPF (0-5); Microcytosis SLIGHT = 6-15 cells HPF (0-5); Platelet Adequacy Comment Platelets Normal; Polychromasia SLIGHT = 2-3 cells HPF (0-2); Schistocytes SLIGHT = 2-5 cells HPF (0-1); Stomatocytes SLIGHT = 2-5 cells HPF (0-1); Target Cells SLIGHT = 2-5 cells HPF (0-1)
== END 2025-01-03 12:36 | disposition home or self-care (01) ==
LOC: ERS 10:03
DX: I10 Essential (primary) hypertension (principal); R11.0 Nausea; Z79.899 Other long term (current) drug therapy
CPT/HCPCS: 71045; 80053; 81001; 81025; 83690; 83735; 84484; 85025; 93005; 96374; J2405